=== PATIENT | male | born 1995 | race Caucasian/White ===

== ENCOUNTER 2019-02-23 20:36 | Observation (INO) | payer BC, OTHER ==
[2019-02-23] MEDS ORDERED: ONDANSETRON 4 MG/2 ML VIAL ONE (21:19)
[2019-02-23] MEDS ORDERED: MORPHINE 4 MG/ML SYR ONE (21:19)
[2019-02-23 21:26] LABS: Absolute Lymphocytes (CBC) 2.5 K/uL (0.7-4.9); Absolute Monocytes 1.5 K/uL (0.1-1.3); Absolute Neutrophil 13.3 K/uL (1.8-8.0); Basophils % 0.4 % (0-1.3); Eosinophils % 1.4 % (0-4.4); Hematocrit 46.9 % (39.6-49.0); Lymphocytes % 14.3 % (15.3-44.8); MPV 8.5 fL (7.6-11.3); Monocytes % 8.5 % (3.3-12.3); RBC Red Blood Cell Count 5.04 M/uL (4.33-5.43)
[2019-02-23] MEDS ORDERED: NA CHLORIDE 0.9% 1,000 ML ONE (21:36)
[2019-02-23 21:45] LABS: Albumin 4.5 g/dL (3.4-5.0); Bilirubin Direct 0.1 mg/dL (0-0.2); Bilirubin Total 0.6 mg/dL (0.2-1.0); Potassium 3.8 mmol/L (3.5-5.1); Protein, Total 8.1 g/dL (6.4-8.2)
--- NOTE | 2019-02-24 00:55 | ER ---
Nurse's Notes [facility] Name: Xavier Sorto Age: 24 yrs Sex: Male : 1995 Arrival Date: 02/23/2019 Time: 20:37 Bed 8 Private MD: Diagnosis: Acute appendicitis Presentation: 02/23 20:43 Presenting complaint: Patient states: I started have lower abdominal pain today and it ed1 keeps getting worse. Transition of care: patient was not received from another setting of care. Onset of symptoms was February 23, 2019. Risk Assessment: Do you want to hurt yourself or someone else? Patient reports no desire to harm self or others. Initial Sepsis Screen: Does the patient meet any 2 criteria? No. Patient's initial sepsis screen is negative. Does the patient have a suspected source of infection? No. Patient's initial sepsis screen is negative. Care prior to arrival: Medication(s) given: Motrin, Immodium. 20:43 Method Of Arrival: Ambulatory ed1 20:43 Acuity: KANDI 3 ed1 Triage Assessment: 20:44 General: Appears uncomfortable, Behavior is calm, cooperative. Pain: Complains of pain ed1 in suprapubic area and right lower quadrant Pain currently is 7 out of 10 on a pain scale. Quality of pain is described as sharp. GI: Abdomen is non-distended, Bowel sounds present X 4 quads. Abd is soft X 4 quads Abdomen is tender to palpation in suprapubic area and right lower quadrant Reports nausea, Patient currently denies diarrhea, vomiting. Historical: - Allergies: 20:44 No Known Allergies; ed1 - Home Meds: 20:44 None [Active]; ed1 - PMHx: 20:44 None; ed1 - PSHx: 20:44 Hernia repair; ed1 - Immunization history:: Adult Immunizations up to date. - Social history:: Smoking status: Patient/guardian denies using tobacco. - Ebola Screening: : Patient negative for fever greater than or equal to 101.5 degrees Fahrenheit, and additional compatible Ebola Virus Disease symptoms Patient denies exposure to infectious person Patient denies travel to an Ebola-affected area in the 21 days before illness onset No symptoms or risks identified at this time. Screenin:05 Abuse screen: Denies threats or abuse. Denies injuries from another. Nutritional aj1 screening: No deficits noted. Tuberculosis screening: No symptoms or risk factors identified. 23:05 Fall Risk None identified. ed1 Assessment: 21:05 General: Appears in no apparent distress. uncomfortable, Behavior is cooperative, aj1 restless. Pain: Complains of pain in umbilical area Pain does not radiate. Neuro: Level of Consciousness is awake, alert, obeys commands, Oriented to person, place, time, situation. Cardiovascular: Patient's skin is warm and dry. Respiratory: Airway is patent Respiratory effort is even, unlabored, Respiratory pattern is regular, symmetrical. GI: Abdomen is flat, non-distended, Bowel sounds present X 4 quads. Abd is soft X 4 quads Abdomen is tender to palpation in right lower quadrant and left lower quadrant Reports nausea, Patient currently denies diarrhea, vomiting. : No signs and/or symptoms were reported regarding the genitourinary system. EENT: No signs and/or symptoms were reported regarding the EENT system. Derm: No signs and/or symptoms reported regarding the dermatologic system. Skin is pink, warm \T\ dry. normal. Musculoskeletal: No signs and/or symptoms reported regarding the musculoskeletal system. Circulation, motion, and sensation intact. 22:05 Reassessment: Patient appears in no apparent distress at this time. No changes from aj1 previously documented assessment. Patient and/or family updated on plan of care and expected duration. Pain level reassessed. Patient is alert, oriented x 3, equal unlabored respirations, skin warm/dry/pink. 23:05 Reassessment: Patient appears in no apparent distress at this time. No changes from ed1 previously documented assessment. Patient and/or family updated on plan of care and expected duration. Pain level reassessed. Patient is alert, oriented x 3, equal unlabored respirations, skin warm/dry/pink. 23:58 Reassessment: Patient appears in no apparent distress at this time. No changes from ed1 previously documented assessment. Patient and/or family updated on plan of care and expected duration. Pain level reassessed. Patient is alert, oriented x 3, equal unlabored respirations, skin warm/dry/pink. Patient states symptoms have not improved. Vital Signs: 20:44 BP 133 / 83; Pulse 75; Resp 20; Temp 99.4; Pulse Ox 99% on R/A; Weight 79.38 kg; Height ed1 5 ft. 7 in. (170.18 cm); Pain 7/10; 22:22 BP 124 / 84; Pulse 99; Resp 16; Pulse Ox 100% on R/A; aj1 23:58 BP 122 / 87; Pulse 105; Resp 20; Temp 98.4(O); Pulse Ox 98% on R/A; Pain 4/10; ed1 02/24 01:47 BP 116 / 81; Pulse 92; Resp 17; Temp 98.3; Pulse Ox 96% on R/A; Pain 2/10; ed1 02/23 20:44 Body Mass Index 27.41 (79.38 kg, 170.18 cm) ed1 ED Course: 02/23 20:37 Patient arrived in ED. am2 20:44 Triage completed. ed1 20:44 Arm band placed on right wrist. ed1 21:00 Inserted saline lock: 20 gauge in right antecubital area, using aseptic technique. aj1 Blood collected. 21:01 Virgen Olivia RN is Primary Nurse. aj1 21:02 Aryan Angel NP is PHCP. pm1 21:02 Samy Porras MD is Attending Physician. pm1 21:05 Patient has correct armband on for positive identification. Bed in low position. Call aj1 light in reach. 21:05 No provider procedures requiring assistance completed. aj1 23:[address] Scan. ed1 23:53 CT completed. Patient tolerated procedure well. Patient moved to CT via stretcher. Patient moved back from CT. 02/24 00:01 Primary Nurse role handed off by Virgen Olivia, MATHEUS ed1 00:01 Chyna Hernandez, MATHEUS is Primary Nurse. ed1 00:22 CT Abd/Pelvis - W/Contrast In Process Unspecified. EDMS 00:54 Daren Rodgers MD is Hospitalizing Provider. pm1 01:47 Patient admitted, IV remains in place. intact, No redness/swelling at site. ed1 Administered Medications: 02/23 21:15 Drug: morphine 4 mg Route: IVP; Site: right antecubital; aj1 22:23 Follow up: Response: No adverse reaction aj1 22:24 Follow up: Response: Pain is decreased aj1 21:15 Drug: Zofran 4 mg Route: IVP; Site: right antecubital; aj1 22:23 Follow up: Response: No adverse reaction aj1 21:26 Drug: NS 0.9% 1000 ml Route: IV; Rate: 1000 ml; Site: right antecubital; aj1 23:30 Follow up: Response: No adverse reaction; IV Status: Completed infusion; IV Intake: rr5 1000ml 02/24 00:54 Not Given (Physician Discretion): Mefoxin 1 grams IVPB once over 30 mins; (mix in 50 mL ed1 NS) 00:55 Not Given (Physician Discretion): Flagyl 500 mg 100 ml IVPB at 200 ml/hr once over 30 ed1 mins 00:55 Not Given (Duplicate Order): Zosyn 3.375 grams IVPB once over 60 mins; (mix in NS 100 ed1 mL) 01:00 Drug: Zosyn 3.375 grams Route: IVPB; Infused Over: 60 mins; Site: right antecubital; ed1 02:00 Follow up: Response: No adverse reaction; IV Status: Completed infusion; IV Intake: ed1 100ml Intake: 02/23 23:30 IV: 1000ml; Total: 1000ml. rr5 02/24 02:00 IV: 100ml; Total: 1100ml. ed1 Outcome: 00:55 Decision to Hospitalize by Provider. pm1 01:52 Admitted to Tele accompanied by nurse, family with patient, via wheelchair, room 431, ed1 with chart, Report called to Germán Blair RN 01:52 Condition: stable 01:52 Discharge instructions given to patient, Instructed on the need for admit, Demonstrated understanding of instructions. 02:34 Patient left the ED. ed1 Signatures: Dispatcher [employer] EDMS Virgen Olivia RN RN aj1 Chris Kraus Erika, RN RN ed1 Aryan Angel, [employer]PER[employer] MANAGER pm1 Liliam Hernandez am2 Sacha Gurrola, RN RN rr5
--- NOTE | 2019-02-24 00:56 | EDPHYS ---
Physician Documentation [facility] Name: Xavier Sorto Age: 24 yrs Sex: Male : 1995 Arrival Date: 02/23/2019 Time: 20:37 Bed 8 Private MD: ED Physician Samy Porras HPI: 02/23 21:47 This 24 yrs old Male presents to ER via Ambulatory with complaints of pm1 Abdominal Pain. 21:47 The patient presents with abdominal pain in the periumbilical area. Onset: The pm1 symptoms/episode began/occurred today. The symptoms do not radiate. Associated signs and symptoms: Pertinent positives: nausea, Pertinent negatives: chest pain, constipation, diarrhea, dysuria, fever, shortness of breath. The symptoms are described as sharp. Modifying factors: The symptoms are alleviated by nothing, the symptoms are aggravated by touching the area, walking. Severity of pain: in the emergency department the pain is actually worse. The patient has not experienced similar symptoms in the past. The patient has not recently seen a physician. Last ate and drank around 1700 today. Historical: - Allergies: 20:44 No Known Allergies; ed1 - Home Meds: 20:44 None [Active]; ed1 - PMHx: 20:44 None; ed1 - PSHx: 20:44 Hernia repair; ed1 - Immunization history:: Adult Immunizations up to date. - Social history:: Smoking status: Patient/guardian denies using tobacco. - Ebola Screening: : Patient negative for fever greater than or equal to 101.5 degrees Fahrenheit, and additional compatible Ebola Virus Disease symptoms Patient denies exposure to infectious person Patient denies travel to an Ebola-affected area in the 21 days before illness onset No symptoms or risks identified at this time. ROS: 21:47 Constitutional: Negative for fever, chills, and weight loss, Eyes: Negative for injury, pm1 pain, redness, and discharge, ENT: Negative for injury, pain, and discharge, Neck: Negative for injury, pain, and swelling, Cardiovascular: Negative for chest pain, palpitations, and edema, Respiratory: Negative for shortness of breath, cough, wheezing, and pleuritic chest pain. 21:47 Back: Negative for injury and pain, : Negative for injury, bleeding, discharge, and swelling, MS/Extremity: Negative for injury and deformity, Skin: Negative for injury, rash, and discoloration, Neuro: Negative for headache, weakness, numbness, tingling, and seizure. 21:47 Abdomen/GI: Positive for abdominal pain, nausea, Negative for vomiting, diarrhea, constipation. Exam: 21:47 Constitutional: This is a well developed, well nourished patient who is awake, alert, pm1 and in no acute distress. Head/Face: Normocephalic, atraumatic. Eyes: Pupils equal round and reactive to light, extra-ocular motions intact. Lids and lashes normal. Conjunctiva and sclera are non-icteric and not injected. Cornea within normal limits. Periorbital areas with no swelling, redness, or edema. ENT: Nares patent. No nasal discharge, no septal abnormalities noted. Tympanic membranes are normal and external auditory canals are clear. Oropharynx with no redness, swelling, or masses, exudates, or evidence of obstruction, uvula midline. Mucous membranes moist. Neck: Trachea midline, no thyromegaly or masses palpated, and no cervical lymphadenopathy. Supple, full range of motion without nuchal rigidity, or vertebral point tenderness. No Meningismus. Chest/axilla: Normal chest wall appearance and motion. Nontender with no deformity. No lesions are appreciated. Cardiovascular: Regular rate and rhythm with a normal S1 and S2. No gallops, murmurs, or rubs. Normal PMI, no JVD. No pulse deficits. Respiratory: Lungs have equal breath sounds bilaterally, clear to auscultation and percussion. No rales, rhonchi or wheezes noted. No increased work of breathing, no retractions or nasal flaring. 21:47 Back: No spinal tenderness. No costovertebral tenderness. Full range of motion. Skin: Warm, dry with normal turgor. Normal color with no rashes, no lesions, and no evidence of cellulitis. MS/ Extremity: Pulses equal, no cyanosis. Neurovascular intact. Full, normal range of motion. 21:47 Abdomen/GI: Inspection: abdomen appears normal, Bowel sounds: normal, Palpation: soft, moderate abdominal tenderness, in the umbilical area, mass, is not appreciated, rebound tenderness, is not appreciated. 21:47 Neuro: Orientation: is normal, Motor: is normal, moves all fours, Sensation: is normal, no obvious gross deficits. Vital Signs: 20:44 BP 133 / 83; Pulse 75; Resp 20; Temp 99.4; Pulse Ox 99% on R/A; Weight 79.38 kg; Height ed1 5 ft. 7 in. (170.18 cm); Pain 7/10; 22:22 BP 124 / 84; Pulse 99; Resp 16; Pulse Ox 100% on R/A; aj1 23:58 BP 122 / 87; Pulse 105; Resp 20; Temp 98.4(O); Pulse Ox 98% on R/A; Pain 4/10; ed1 02/24 01:47 BP 116 / 81; Pulse 92; Resp 17; Temp 98.3; Pulse Ox 96% on R/A; Pain 2/10; ed1 02/23 20:44 Body Mass Index 27.41 (79.38 kg, 170.18 cm) ed1 MDM: 02/23 21:03 Patient medically screened. pm1 21:12 Patient medically screened. [facility] 21:47 Data reviewed: vital signs. Data interpreted: Pulse oximetry: on room air is 99 %. pm1 Interpretation: normal. 02/24 00:48 Counseling: I had a detailed discussion with the patient and/or guardian regarding: the pm1 historical points, exam findings, and any diagnostic results supporting the discharge/admit diagnosis, lab results, radiology results, the need for further work-up and treatment in the hospital. 00:48 Physician consultation: Daren Rodgers MD was called at 00:49, was contacted at 00:49, pm1 regarding admission, patient's condition, and will see patient in the AM. NPO, IV fluids, pain medications, antibiotics. 00:48 Physician consultation: Daren Rodgers MD admit to his service. pm1 02/23 21:01 Order name: Basic Metabolic Panel; Complete Time: 21:47 02/23 21:01 Order name: CBC with Diff; Complete Time: 21:47 02/23 21:01 Order name: Creatinine for Radiology; Complete Time: 21:47 aj02/23 21:01 Order name: Hepatic Function; Complete Time: 21:47 aj02/23 21:01 Order name: Lipase; Complete Time: 21:47 02/23 21:04 Order name: CT Abd/Pelvis - W/Contrast pm1 02/23 21:01 Order name: IV Saline Lock; Complete Time: 21:02/23 21:01 Order name: Labs collected and sent; Complete Time: :02/23 21:05 Order name: NPO; Complete Time: 21:14 pm1 Administered Medications: 02/23 21:15 Drug: morphine 4 mg Route: IVP; Site: right antecubital; aj1 22:23 Follow up: Response: No adverse reaction aj1 22:24 Follow up: Response: Pain is decreased aj1 :15 Drug: Zofran 4 mg Route: IVP; Site: right antecubital; aj1 22:23 Follow up: Response: No adverse reaction aj1 :26 Drug: NS 0.9% 1000 ml Route: IV; Rate: 1000 ml; Site: right antecubital; aj1 23:30 Follow up: Response: No adverse reaction; IV Status: Completed infusion; IV Intake: rr5 1000ml 02/24 00:54 Not Given (Physician Discretion): Mefoxin 1 grams IVPB once over 30 mins; (mix in 50 mL ed1 NS) 00:55 Not Given (Physician Discretion): Flagyl 500 mg 100 ml IVPB at 200 ml/hr once over 30 ed1 mins 00:55 Not Given (Duplicate Order): Zosyn 3.375 grams IVPB once over 60 mins; (mix in NS 100 ed1 mL) 01:00 Drug: Zosyn 3.375 grams Route: IVPB; Infused Over: 60 mins; Site: right antecubital; ed1 02:00 Follow up: Response: No adverse reaction; IV Status: Completed infusion; IV Intake: ed1 100ml Disposition: 07:14 Co-signature as Attending Physician, Samy Porras MD I agree with the assessment and brendan plan of care. Disposition: 02/24/19 00:55 Hospitalization ordered by Daren Rodgers for Observation. Preliminary diagnosis is Acute appendicitis. - Bed requested for Telemetry/MedSurg (observation). - Status is Observation. ed1 - Condition is Stable. - Problem is new. - Symptoms have improved. UTI on Admission? No Signatures: Dispatcher [employer] EDDC Virgen Olivia RN RN aj1 Samy Porras MD MD cha Riggs, Erika, RN RN ed1 Zuri Siddiqi RN RN Aryan Angel, [employer] OPERATOR pm1 Sacha Gurrola RN rr5 Corrections: (The following items were deleted from the chart) :19 00:55 Hospitalization Ordered by Daren Rodgers MD for Observation. Preliminary cg diagnosis is Acute appendicitis. Bed requested for Telemetry/MedSurg (observation). Status is Observation. Condition is Stable. Problem is new. Symptoms have improved. UTI on Admission? No. pm1 02:34 01:19 02/24/2019 00:55 Hospitalization Ordered by Daren Rodgers MD for Observation. ed1 Preliminary diagnosis is Acute appendicitis. Bed requested for Telemetry/MedSurg (observation). Status is Observation. Condition is Stable. Problem is new. Symptoms have improved. UTI on Admission? No. cg
[2019-02-24] MEDS ORDERED: METRONIDAZOLE 500mg IVPB 0 MG/0 ML BAG IV ONE (01:05)
[2019-02-24] MEDS ORDERED: PIPER/TAZO/NS 3.375gm 3.375 GM/100 ML BAG ONE (01:07)
[2019-02-24] MEDS ORDERED: MORPHINE 4 MG/ML SYR IV PRN ×2 (02:58→09:49)
[2019-02-24] MEDS ORDERED: ONDANSETRON 4 MG/2 ML VIAL IV PRN (02:58)
[2019-02-24] MEDS: NA CHLORIDE 0.9% 1,000 ML IV SCH ×2 (03:41→11:20)
[2019-02-24] MEDS ORDERED: PIPERACIL/TAZO 3.375 GM VIAL IV ONE (05:29)
[2019-02-24] MEDS ORDERED: NA CHLORIDE 0.9% 100 ML IV ONE (05:34)
[2019-02-24] MEDS ORDERED: PIPER/TAZO/NS 3.375gm 3.375 GM/100 ML BAG IVPB SCH (06:00)
[2019-02-24 07:55] LABS: Urine Appearance CLEAR; Urine Bilirubin NEGATIVE (NEG); Urine Blood NEGATIVE (NEG); Urine Color YELLOW; Urine Glucose NEGATIVE (NEG); Urine Protein NEGATIVE (NEG); Urine Specific Gravity >=1.030 (1.005-1.030); Urine Urobilinogen 0.2 mg/dL (0.2-1.0)
[2019-02-24] MEDS ORDERED: ROCURONIUM 50 MG/5 ML VIAL IV ONE (07:59)
[2019-02-24] MEDS ORDERED: PROPOFOL 200 MG/20 ML VIAL IV ONE (07:59)
[2019-02-24] MEDS ORDERED: GLYCOPYRROLATE 0.2 MG/ML SYR ONE (08:00)
[2019-02-24] MEDS ORDERED: LIDOCAINE 2% MPF 5 ML VIAL ONE (08:00)
[2019-02-24] MEDS ORDERED: FENTANYL CITR 250 MCG/5 ML ONE (08:01)
[2019-02-24] MEDS ORDERED: ONDANSETRON 4 MG/2 ML VIAL ONE (08:01)
[2019-02-24] MEDS ORDERED: NEOSTIGMINE 1 MG/ML -10 ML VIAL ONE (08:01)
[2019-02-24] MEDS ORDERED: MIDAZOLAM HCL 2 MG/2 ML INJ ONE (08:02)
[2019-02-24] MEDS: BUPIVACAINE 0.5% PF 10 ML VIAL ONE ×2 (08:09→08:52)
[2019-02-24 08:13] LABS: Urine Bacteria <20 /HPF (NONE SEEN); Urine Culture Reflex Order NOT NEEDED; Urine RBC <5 /HPF (NONE SEEN)
--- NOTE | 2019-02-24 08:29 | P.HP ---
Date of Service: 02/24/19 PC: This 24-year-old male presents emergency room with severe right lower quadrant abdominal pain for diagnosis and treatment. HPC: The patient again expressed right lower quadrant abdominal pain yesterday around about 5 o'clock. Pain intensified and he had to go to the emergency room for evaluation. On workup was found have acute abdomen confirmed by CT scan which shows a acute appendicitis. PMH: Negative PSHx: No prior surgeries SOC: Negative SYS REVIEW: No cough, wheeze, shortness of breath. No chest pain or palpitations. Denies any urinary complaints. O/E alert uncomfortable HEENT: Nonicteric Chest: Chest movement equal bilaterally ABD: Tender with guarding and rebound in the right lower quadrant LOCO: Intact DATA: Elevated white cell count at 17,000, CT scan shows acute appendix IMPRESSION: Acute abdomen with appendicitis PLAN: I will take him to the operating room for laparoscopic possible open appendectomy. The risks of this procedure have been discussed. The possibility of bleeding, infection, injury to bowel blood vessels and surrounding structures was explained. The possible need for an open and/or further surgeries and procedures was described. He understands and wants us to proceed.
[2019-02-24] MEDS ORDERED: Ringers Lactate 1,000 ML IV ONE (09:03)
--- NOTE | 2019-02-24 09:40 | P.OP ---
Preoperative diagnosis: Acute abdomen with appendicitis Postoperative diagnosis: The same Primary procedure: Laparoscopic appy Anesthesia: General Estimated blood loss: Less than 10 cc Specimen: 1 appendix sent for histopathology Operative Technique: The patient brought the operating room and placed supine on the table. After the induction of adequate general endotracheal anesthesia, the area of the abdomen is prepped with a DuraPrep solution, he was draped in usual aseptic manner. A subumbilical incision was made. This brought down through the skin and subcutaneous tissue. The Visiport was used to enter the peritoneal cavity and created pneumoperitoneum to approximately 12 mm of mercury. Under direct vision a 5 mm trocar was placed in lower midline, and another 5 on the right lateral side. The patient was then placed in Trendelenburg and rolled to the left. We could visualize the right lower quadrant. We could see an acutely inflamed appendix. It was grasped with a grasper. On tracing it down we could see the junction of the appendix with the cecum. A window was made in the mesentery of the appendix. The linear Stapler was now introduced after converting the 10 to a 12 mm trocar. The stapling device placed across the base the appendix and fired. A reload was now placed and the instrument adjusted over the mesentery of the appendix. The instrument was fired and the appendix was detached. It was placed into an Endo-Catch and brought out through the umbilical trocar site. We went back to the area of the cecum. Careful inspection revealed we had adequate hemostasis and a good suture line. The patient was taken intra out of Trendelenburg. The umbilical trocar site was approximated using the Endo Close an absorbable suture. The pneumoperitoneum was now collapsed, the sutures tied, and agustin applied to the skin of procedure the patient was in a stable condition when sent to the recovery room. Needle sponge instrument count were correct. No drains were placed. Complications: None Transferred to: Recovery Room Condition: Good
[2019-02-24] MEDS ORDERED: HYDROCODONE/APAP 7.5/325 MG TAB PO PRN (09:49)
[2019-02-24] MEDS: HYDROMORPHONE HCL 1 MG/ML INJ ONE ×2 (10:05→10:16)
[2019-02-24] MEDS: PIPER/TAZO/NS 3.375gm 3.375 GM/100 ML BAG IVPB SCH ×2 (11:20→19:38)
--- NOTE | 2019-02-27 14:23 | RAD REPORT ---
EXAM DESCRIPTION: Abdomen Pelvis W Contrast ADDENDUM #1 THIS REPORT CONTAINS FINDINGS THAT MAY BE CRITICAL TO PATIENT CARE: The findings were verbally discu ssed via telephone conference with STEAMTABLE ATTENDANT [employer]RO[employer] Aryan Angel by Dr. Citlalli Yusuf on 02/24/2019 12:40 AM CDT .T he results were acknowledged and understood. Electronically signed by: Citlalli Yusuf MD 02/24/2019 12:40 AM CDT End of Addendum EXAM DESCRIPTION: CT Abdomen Pelvis W Contrast CLINICAL HISTORY: 24 years Male ABD PAIN TECHNIQUE: Contiguous axial images obtained through the abdomen and pelvis following IV contrast. Oral contrast also administered. Coronal and sagittal reformatted images provided. This CT exam was performed according to our departmental dose-optimization program, which includes on e or more of the following dose reduction techniques: automated exposure control, adjustment of the m A and/or kV according to patient size, and/or use of iterative reconstruction technique. COMPARISON: No prior exams provided for comparison. FINDINGS: The appendix is abnormal, demonstrating distention up to 10 mm with oral contrast and mild periappendiceal inflammation. The remainder of the bowel is normal without obstruction. There is no free intraperitoneal air, ascites, or abscess. The lung bases, liver, biliary tree, gallbladder, pancreas, spleen, adrenal glands, kidneys, urinary bladder, and osseous structures are unremarkable. IMPRESSION: Acute appendicitis without free intraperitoneal air or abscess. Electronically signed by: Citlalli Yusuf MD 02/24/2019 12:37 AM CDT Due to temporary technical issues with the PACS/Fluency reporting system, reports are being signed by the in house radiologist as a courtesy to ensure prompt reporting. The interpreting radiologist is f ully responsible for the content of the report.
== END 2019-02-24 21:15 | disposition home or self-care (01) ==
LOC: ER 20:36 → ERHOLD 02-24 01:32 → 4TH 02-24 02:16
PROVIDERS: ADMIT Surgery; ATTEND Surgery
PROC: 0DTJ4ZZ Resection of Appendix, Percutaneous Endoscopic Approach (ICD-10-PCS; principal; 2019-02-24 09:00)
DX: K35.80 Unspecified acute appendicitis (principal)
CPT/HCPCS: 36415; 74177; 80048; 80076; 81001; 83690; 85025; 88304; 96361; 96365; 96367; 96375; 99285; G0378; J1170; J2250; J2405; J2543; J2704; J2710; J3010; J7030; Q9967